=== PATIENT | female | born 1970 | race African-American/Black ===

== ENCOUNTER 2018-06-24 22:07 | Emergency (ER) | payer OTHER ==
[~2018-06-24] VITALS: Ht 160 cm; Wt 71.3 kg
[2018-06-24 22:16] VITALS: BP 147/93
[2018-06-24 23:08] LABS: CLARITY,URINE CLEAR (Clear); COLOR,URINE STRAW (Yellow); GLUCOSE, URINE NEGATIVE (Neg); KETONES,URINE NEGATIVE (Neg); LEUKOCYTE ESTERASE ,URINE NEGATIVE (Neg); NITRITES, URINE NEGATIVE (Neg); OCCULT BLOOD,URINE TRACE-INTACT (Neg); PROTEIN,URINE NEGATIVE (Neg); UROBILINOGEN,URINE 0.2 E.U/dL (0.2-1.0)
[2018-06-24] MEDS ORDERED: acetaminophen 325mg tablet PO ONE (23:10)
[2018-06-24] MEDS ORDERED: ketorolac trometh inj. 60 MG/2 ML VIAL IM ONE (23:10)
[2018-06-24] MEDS ORDERED: LIDOcaine 5% patch TP ONE (23:10)
[2018-06-24 23:14] LABS: UA COLLECTION TYPE CLN CATCH MIDSTREAM
[2018-06-24 23:17] LABS: BACTERIA,URINE NONE SEEN /HPF (Neg); RBC,URINE NONE SEEN /HPF (0-2); SQUAMOUS EPITHELIAL CELL,UR FEW /LPF (FEW); WBC,URINE 0-4 /HPF (0-4)
[2018-06-24] MEDS ORDERED: IBUP-1985 PO (23:27)
[2018-06-24] MEDS ORDERED: ACET-2615 PO (23:27)
== END 2018-06-24 23:52 | disposition home or self-care (01) ==
LOC: ER 22:07
DX: M54.5 Low back pain (principal); Z87.442 Personal history of urinary calculi; Z87.440 Personal history of urinary (tract) infections; Z88.8 Allergy status to other drugs, medicaments and biological substances
CPT/HCPCS: 81001; 96372; 99283; J1885